=== PATIENT | male | born 1985 | race Hispanic/Latino ===

== ENCOUNTER 2024-02-09 15:42 | Emergency (ER) | payer OTHER ==
[2024-02-09 16:38] LABS: Absolute Eosinophils 0.1 K/uL (0-0.5); Absolute Lymphocytes (CBC) 2.1 K/uL (0.7-4.9); Absolute Monocytes 0.6 K/uL (0.1-1.3); Absolute Neutrophil 3.8 K/uL (1.8-8.0); Basophils % 0.5 % (0-1.3); Eosinophils % 1.5 % (0-4.4); Hematocrit 41.3 % (39.6-49.0); Hemoglobin 13.9 g/dL (13.6-17.9); Lymphocytes % 31.7 % (15.3-44.8); MCH 29.5 pg (27.0-35.0); MCHC 33.8 g/dL (32.0-36.0); MCV 87.5 fL (80-100); MPV 7.6 fL (7.6-11.3); Neutrophils % 57.3 % (41.7-73.7); Platelets 377 thou/uL (152-406); RBC Red Blood Cell Count 4.72 M/uL (4.33-5.43); Red Cell Distribution Width 13.2 % (12.1-15.2)
[2024-02-09 16:55] LABS: Albumin 3.7 g/dL (3.4-5.0); Albumin/Globulin Ratio 0.9 (1.1-1.8); Anion Gap 7.8 mEq/L (5.0-15.0); Bilirubin Total 0.3 mg/dL (0.2-1.0); Globulin 4.2 g/dL (2.3-3.5); Potassium 3.8 mEq/L (3.5-5.1); Protein, Total 7.9 g/dL (6.4-8.2)
[2024-02-09 17:20] LABS: Specific Gravity 1.023 (1.005-1.030); Sqamous Epithelial None Seen /HPF (None Seen); Urine Bacteria None Seen /HPF (<20); Urine Bilirubin NEGATIVE (Negative); Urine Blood Negative (Negative); Urine Clarity Clear (Clear); Urine Color Yellow (Yellow); Urine Culture Reflex Order NOT NEEDED; Urine Glucose NEGATIVE (Negative); Urine Ketones NEGATIVE (Negative); Urine Microscopic Reflex YN ORDER UMIC; Urine Mucus Slight /HPF (None Seen); Urine Nitrite NEGATIVE (Negative); Urine Protein TRACE (Negative); Urine RBC <5 /HPF (None Seen); Urine Urobilinogen Normal (Normal); Urine WBC <5 /HPF (<5)
--- NOTE | 2024-02-09 18:11 | RAD REPORT ---
EXAMINATION: CT ABDOMEN AND PELVIS WITH CONTRAST CLINICAL INDICATION: Abdominal pain TECHNIQUE: CT abdomen and pelvis was performed, after the administration of 100 cc Isovue-300.. Sagit nii and coronal reconstructions were obtained. One or more of the following dose reduction techniques were used: Automated exposure control, adjustment of the mA and kV according to patient si ze, and iterative reconstruction. Unless otherwise specified, incidental findings do not require dedicated imaging follow-up. [id number]. Oral contrast was not given which limits evaluation of bowel and appendix. COMPARISON: .None FINDINGS: Liver, spleen, pancreas, adrenals and kidneys appear unremarkable No evidence of diverticulitis. Normal appendix. Small bilateral hernias containing fat.. Small umbilical hernia : IMPRESSION: No acute abnormality displayed
--- NOTE | 2024-02-09 18:27 | ER ---
Nurse's Notes [facility] Name: Saleem Ngo Age: 38 yrs Sex: Male : 1985 Arrival Date: 02/09/2024 Time: 15:42 Bed 7 Private MD: Diagnosis: Upper abdominal pain, unspecified;Elevated blood-pressure reading, without diagnosis of hypertension Presentation: 02/08 15:50 Chief complaint: Patient states: "I think my liver and kidneys are finally giving up on ss me." Pt reports localized yellowing to bilateral flank areas and RUQ pain as well has abd bloating. Coronavirus screen: Client denies travel out of the [place] in the last 14 days. Ebola Screen: Patient denies exposure to infectious person. Patient denies travel to an Ebola-affected area in the 21 days before illness onset. Initial Sepsis Screen: Does the patient meet any 2 criteria? No. Patient's initial sepsis screen is negative. Does the patient have a suspected source of infection? No. Patient's initial sepsis screen is negative. Risk Assessment: Do you want to hurt yourself or someone else? Patient reports no desire to harm self or others. Onset of symptoms is unknown. 15:50 Method Of Arrival: Ambulatory ss 15:50 Acuity: DIXIE 3 ss Historical: - Allergies: 15:52 No Known Allergies; ss - Home Meds: 15:52 None [Active]; ss - PMHx: 15:52 None; ss - PSHx: 15:52 bunion; ss - Immunization history:: Client reports having NOT received the Covid vaccine. - Infectious Disease History:: Denies. - Social history:: Smoking status: Patient denies any tobacco usage or history of. Screenin:31 [facility] ED Fall Risk Assessment (Adult) History of falling in the last 3 months, tm6 including since admission No falls in past 3 months (0 pts) Confusion or Disorientation No (0 pts) Intoxicated or Sedated No (0 pts) Impaired Gait No (0 pts) Mobility Assist Device Used No (0 pt) Altered Elimination No (0 pt) Score/Fall Risk Level 0 - 2 = Low Risk Oriented to surroundings, Maintained a safe environment, Educated pt \\T\\ family on fall prevention, incl call for assistance when getting out of bed. Abuse screen: Denies threats or abuse. Denies injuries from another. Nutritional screening: No deficits noted. Tuberculosis screening: No symptoms or risk factors identified. Assessment: 16:31 General: Appears in no apparent distress. Behavior is calm, cooperative. Pain: Denies tm6 pain. Neuro: Level of Consciousness is awake, alert, obeys commands. Cardiovascular: Patient's skin is warm and dry. Respiratory: Airway is patent Respiratory effort is even, unlabored, Respiratory pattern is regular, symmetrical. GI: Abdomen is round. : No signs and/or symptoms were reported regarding the genitourinary system. EENT: No signs and/or symptoms were reported regarding the EENT system. Derm: Reports yellowing of skin on lower back. Musculoskeletal: No signs and/or symptoms reported regarding the musculoskeletal system. 17:52 Reassessment: Patient appears in no apparent distress at this time. Patient and/or hb family updated on plan of care and expected duration. Pain level reassessed. Patient is alert, oriented x 3, equal unlabored respirations, skin warm/dry/pink. 18:38 Reassessment: Patient and/or family updated on plan of care and expected duration. Pain tm6 level reassessed. Patient is alert, oriented x 3, equal unlabored respirations, skin warm/dry/pink. Vital Signs: 15:50 BP 173 / 100; Pulse 92; Resp 18; Temp 98.1(TE); Pulse Ox 99% on R/A; Weight 136.08 kg; ss Height 5 ft. 8 in. ; Pain 0/10; 18:37 BP 161 / 107; Pulse 75; Resp 18; Temp 98.1; Pulse Ox 98% on R/A; MAP 124 mmHg; Pain tm6 0/10; 15:50 Body Mass Index 45.61 (136.08 kg, 172.72 cm) ss 15:50 Pain Scale: Adult ss 18:37 Pain Scale: Adult tm6 ED Course: 15:46 Patient arrived in ED. mg5 15:46 Cheyenne Nolen PA-C is PHCP. sb4 15:46 Ivory Pruett MD is Attending Physician. sb4 15:52 Triage completed. ss 15:52 Arm band placed on right wrist. ss 16:04 Renetta Martin, DANE is Primary Nurse. tm6 16:31 Patient has correct armband on for positive identification. Placed in gown. Bed in low tm6 position. Call light in reach. Side rails up X 1. Provided Education on: use of call romo. 16:31 No provider procedures requiring assistance completed. Inserted saline lock: 20 gauge tm6 in right antecubital area, using aseptic technique. Blood collected. Flushed with 10 mL NS. 16:31 CBC with Diff Sent. tm6 16:31 CMP Sent. tm6 16:31 Lipase Sent. tm6 16:40 Urinalysis w/ reflexes Sent. tm6 17:39 CT Abd/Pelvis - IV Contrast Only In Process Unspecified. EDMS 18:38 IV discontinued, intact, bleeding controlled, No redness/swelling at site. Pressure tm6 dressing applied. Administered Medications: No medications were administered Medication: 16:31 VIS not applicable for this client. tm6 Outcome: 18:26 Discharge ordered by MD. sb4 18:38 Discharged to home ambulatory, tm6 18:38 Condition: stable 18:38 Discharge instructions given to patient, Instructed on discharge instructions, follow up and referral plans. Demonstrated understanding of instructions, follow-up care, 18:38 Patient left the ED. tm6 Signatures: Dispatcher [employer] EDMS Loida Lechuga RN RN ss Lulu Niño RN RN Cheyenne Castillo PA-C PAConchita Coffey 5 Renetta Martin, RN RN tm6 Corrections: (The following items were deleted from the chart) 15:53 15:52 PSHx: None; ss ss 16:33 16:31 Patient is placed in psych hold tm6 tm6
--- NOTE | 2024-02-09 18:27 | EDPHYS ---
Physician Documentation [facility] Name: Saleem Ngo Age: 38 yrs Sex: Male : 1985 Arrival Date: 02/09/2024 Time: 15:42 Bed 7 Private MD: ED Physician Ivory Pruett HPI: 02/08 16:06 This 38 yrs old Male presents to ER via Ambulatory with complaints of sb4 abdominal pain. 16:06 Patient comes in today with several concerns. He states that he believes that his sb4 kidney and liver are failing him due to several years of him not taking care of himself. He reports a history of alcohol abuse and unhealthy diet. He states that this afternoon, he ate a heavy meal, then took a shower, started experience abdominal pain which he believes is his liver and noticed a yellow-tint to his lower back . Historical: - Allergies: 15:52 No Known Allergies; ss - Home Meds: 15:52 None [Active]; ss - PMHx: 15:52 None; ss - PSHx: 15:52 bunion; ss - Immunization history:: Client reports having NOT received the Covid vaccine. - Infectious Disease History:: Denies. - Social history:: Smoking status: Patient denies any tobacco usage or history of. ROS: 16:10 Constitutional: Negative for fever, chills, and weight loss, sb4 16:10 Abdomen/GI: Positive for abdominal pain, constipation, abdominal distension, 16:10 : Positive for urinary frequency, 16:10 Endocrine: Positive for polydipsia, 16:10 All other systems are negative, Exam: 16:10 Head/Face: Normocephalic, atraumatic. Eyes: Extra-ocular motions intact. Periorbital sb4 areas with no swelling, redness, or edema. ENT: Mucous membranes moist. Cardiovascular: Regular rate and rhythm with a normal S1 and S2. Respiratory: No increased work of breathing, no retractions or nasal flaring. Abdomen/GI: Soft, non-tender, no distension. Back: No spinal tenderness. No costovertebral tenderness. Full range of motion. Skin: Warm, dry with normal turgor. Normal color with no rashes, no lesions, and no evidence of cellulitis. 16:10 Constitutional: The patient appears in no acute distress, alert, awake, anxious, obese, Vital Signs: 15:50 BP 173 / 100; Pulse 92; Resp 18; Temp 98.1(TE); Pulse Ox 99% on R/A; Weight 136.08 kg; ss Height 5 ft. 8 in. ; Pain 0/10; 18:37 BP 161 / 107; Pulse 75; Resp 18; Temp 98.1; Pulse Ox 98% on R/A; MAP 124 mmHg; Pain tm6 0/10; 15:50 Body Mass Index 45.61 (136.08 kg, 172.72 cm) ss 15:50 Pain Scale: Adult ss 18:37 Pain Scale: Adult tm6 MDM: 15:55 Medical Screening Exam initiated sb4 19:13 Data reviewed: vital signs, nurses notes, lab test result(s), radiologic studies, and sb4 as a result, I will discharge patient. Counseling: I had a detailed discussion with the patient and/or guardian regarding the historical points, exam findings, and any diagnostic results supporting the discharge/admit diagnosis, the presence of at least one elevated blood pressure reading (>120/80) during this emergency department visit, lab results, radiology results, the need for outpatient follow up, for definitive care, to return to the emergency department if symptoms worsen or persist or if there are any questions or concerns that arise at home. 02/08 16:04 Order name: CBC with Diff; Complete Time: 16:48 sb4 02/08 16:04 Order name: CMP; Complete Time: 16:57 sb4 02/08 16:04 Order name: Lipase; Complete Time: 16:57 sb4 02/08 16:04 Order name: Urinalysis w/ reflexes; Complete Time: 17:21 sb4 02/08 16:19 Order name: CT Abd/Pelvis - IV Contrast Only; Complete Time: 18:12 sb4 02/08 16:04 Order name: IV Saline Lock; Complete Time: 16:31 sb4 02/08 16:04 Order name: Labs collected and sent; Complete Time: 16:31 sb4 Administered Medications: No medications were administered Disposition Summary: 02/09/24 18:26 Discharge Ordered Notes: Location: Home sb4 Problem: new sb4 Symptoms: are unchanged sb4 Condition: Stable sb4 Diagnosis - Upper abdominal pain, unspecified sb4 - Elevated blood-pressure reading, without diagnosis of hypertension sb4 Followup: sb4 - With: Private Physician - When: As needed - Reason: Recheck today's complaints, Re-evaluation by your physician Discharge Instructions: - Discharge Summary Sheet sb4 - Abdominal Pain, Adult sb4 - How to Take Your Blood Pressure, [id number] sb4 Forms: - Patient Portal Instructions sb4 - Leadership Thank You Letter sb4 Signatures: Dispatcher [employer] Loida Emery RN RN Cheyenne Puri PA-C PA-C sb4 Corrections: (The following items were deleted from the chart) 15:53 15:52 PSHx: None; ss
[2024-02-09 21:48] VITALS: TEMP 98.1
[2024-02-09 21:49] VITALS: BP 161/107; O2SAT 98
--- OUTSIDE RECORDS SUMMARY | 2024-02-12 08:18 | XMS REPORT | Continuity of Care Document ---
Author Name Unknown Address [address] [place] [address] [facility] Address [address] [place] [address] Care Team Providers Care Power Lineman Name Role Phone Anisha Garcia Primary Care Physician Vital Signs Vital Name Observation Time Observation Value Comments S ource Respiratory Rate 2023-07-18 16:52:00 Mark Patton BP Systolic 2023-07-18 16:52:00 120 mm[Hg] Stanley Patton BP Diastolic 2023-07-18 16:52:00 74 mm[Hg] Gerber Patton Weight Measured 2023-07-18 16:52:00 295.00 pounds Mark Patton Height Measured 2023-07-18 16:52:00 66.93 inches Mark Patton Body Temperature 2023-07-18 16:52:00 97.60 degrees Mark Patton Heart Rate 2023-07-18 16:52:00 67.00 /min Bella Patton Encounters Start Date/Time End Date/Time Encounter Type Admission Type Attending [facility] Facility Care Department Encounter ID Source 2023-07-26 16:43:22 2023-07-26 16:43:22 Outpatient [facility] [id number] Mark Patton 2023-07-19 11:19:12 2023-07-19 11:19:12 Outpatient [facility] SFA [id number] Mark Patton 2023-07-18 16:51:30 2023-07-18 16:51:30 Outpatient [facility] SFA [id number] Mark Patton 2023-07-18 00:00:00 2023-07-18 00:00:00 Outpatient Visit [facility] [id number] Mark Patton Results Test Description Test Time Test Comments Results Result Co mments Source
== END 2024-02-09 18:38 | disposition home or self-care (01) ==
LOC: ER 15:42
DX: R10.11 Right upper quadrant pain (principal); R03.0 Elevated blood-pressure reading, without diagnosis of hypertension
CPT/HCPCS: 85025; 81001; 36415; 83690; 80053; 74177; 99284; Q9967